=== PATIENT | female | born 1950 ===

== ENCOUNTER 2019-07-27 14:53 | Emergency (ER) | payer MEDICARE ==
[~2019-07-27] VITALS: Ht 165.1 cm; Wt 63.0 kg
[2019-07-27 15:04] VITALS: BP 155/81
== END 2019-07-27 16:45 | disposition left against medical advice (07) ==
LOC: ER 14:55
DX: M54.2 Cervicalgia (principal); Z53.21 Procedure and treatment not carried out due to patient leaving prior to being seen by health care provider